=== PATIENT | female | born 1995 | race Caucasian/White ===

== ENCOUNTER 2020-10-01 21:05 | Emergency (ER) | payer BC ==
[~2020-10-01] VITALS: Ht 167.6 cm; Wt 61.4 kg
[2020-10-01 22:30] VITALS: BP 124/88
--- NOTE | 2020-10-01 23:54 | RAD ---
STUDY: CT head and cervical spine without contrast INDICATION: Blunt trauma. COMPARISON: None. TECHNIQUE: Axial CT imaging through the head and cervical spine without the use of intravenous contra st. Sagittal and coronal reformats were obtained. One or more of the following individualized dose reduction techniques were utilized for this examinat ion: 1. Automated exposure control 2. Adjustment of the mA and/or kV according to patient size 3. Use of iterative reconstruction technique. FINDINGS: CT head: No acute intracranial hemorrhage. No mass effect, midline shift or hydrocephalus. Leger-white matter d ifferentiation is maintained. Unremarkable calvarium. No layering fluid seen within the visualized paranasal sinuses. Unremarkable mastoid air cells and middle ears. CT cervical spine: No acute fracture or traumatic malalignment. No osseous central canal or neural foraminal stenosis. Unremarkable paraspinous soft tissues, thyroid and lung apices. IMPRESSION: CT head: 1. Unremarkable head CT. CT cervical spine: 1. No acute fracture or traumatic malalignment. Electronically signed by: KARINA CHACON MD (10/01/2020 11:51 PM) [facility]
[2020-10-02] MEDS ORDERED: ONDA4TAB12 PO (00:37)
--- NOTE | 2020-10-02 00:37 | PHYS DOC ---
General Adult EDM: Chief Complaint: MECHANICAL FALL HPI: HPI: Patient is a 25 year old 25-year-old female reports that approximately an hour and half prior to arrival to the ER today she was running into her garage when she hit her head on the garage door falling backward and striking her head on the concrete floor. Patient denies any loss of consciousness. Patient states she has mild head pain. Patient states that her neck feels a little stiff. Patient is worried that she might have a concussion so she came to the emergency department today. Patient states that she is currently on her menstrual cycle which started 2 days ago. Patient denies any allergies to medications, states she takes methylphenidate, Abilify, Lamictal, and gabapentin for panic disorders. Patient denies any visual disturbances, denies any other Zickel complaints or physical concerns. Review of Systems: Review of Systems: 14 body systems of review of systems have been reviewed. See HPI for pertinent positives and negative responses, otherwise all other systems are negative, nonpertinent or noncontributory. Heart Score: C/O Chest Pain: No Risk Factors: Risk Factors: DM, Current or recent (<one month) smoker, HTN, HLP, family history of CAD, obesity. Risk Scores: Score 0 - 3: 2.5% MACE over next 6 weeks - Discharge Home Score 4 - 6: 20.3% MACE over next 6 weeks - Admit for Clinical Observation Score 7 - 10: 72.7% MACE over next 6 weeks - Early Invasive Strategies Physical Exam: PE: Constitutional: Well developed, well nourished, no acute distress, non-toxic appearance. 25-year-old female no apparent distress. HENT: Normocephalic, atraumatic, bilateral external ears normal, oropharynx moist, no oral exudates, nose normal. No skull depressions appreciated, no areas of ecchymosis appreciated of the skull, no swelling or crepitus appreciated of the skull or scalp. Eyes: PERRLA, EOMI, conjunctiva normal, no discharge. Neck: Normal range of motion, no tenderness, supple, no stridor. No midline spinal tenderness, no meningismus signs, no nuchal rigidity appreciated. Cardiovascular:Heart rate regular rhythm, no murmur, heart sounds S1-S2 to auscultation. Lungs & Thorax: Bilateral breath sounds clear to auscultation all lung benito, no adventitious lung sounds appreciated. Abdomen: Bowel sounds normal, soft, no tenderness, no masses, no pulsatile masses. Skin: Warm, dry, no erythema, no rash. Back: No tenderness, no CVA tenderness. Extremities: No tenderness, no cyanosis, no clubbing, ROM intact, no edema. Neurologic: Alert and oriented X 3, normal motor function, normal sensory fu nction, no focal deficits noted. Psychologic: Affect normal, judgement normal, mood normal. EKG: EKG: [] Radiology/Procedures: Radiology/Procedures: PATIENT: FERNANDA RILEY ACCOUNT: [id number] : 1995 LOCATION: ER AGE: 25 SEX: F EXAM STATUS: REG ER ORD. PHYSICIAN: TY HOGAN APRN REASON: BLUNT TRAUMA PROCEDURE: CT HEAD AND CERVICAL SPINE WO STUDY: CT head and cervical spine without contrast INDICATION: Blunt trauma. COMPARISON: None. TECHNIQUE: Axial CT imaging through the head and cervical spine without the use of intravenous contrast. Sagittal and coronal reformats were obtained. One or more of the following individualized dose reduction techniques were utilized for this examination: 1. Automated exposure control 2. Adjustment of the mA and/or kV according to patient size 3. Use of iterative reconstruction technique. FINDINGS: CT head: No acute intracranial hemorrhage. No mass effect, midline shift or hydrocephalus. Leger-white matter differentiation is maintained. Unremarkable calvarium. No layering fluid seen within the visualized paranasal sinuses. Unremarkable mastoid air cells and middle ears. CT cervical spine: No acute fracture or traumatic malalignment. No osseous central canal or neural foraminal stenosis. Unremarkable paraspinous soft tissues, thyroid and lung apices. IMPRESSION: CT head: 1. Unremarkable head CT. CT cervical spine: 1. No acute fracture or traumatic malalignment. Electronically signed by: KARINA CHACON MD (10/01/2020 11:51 PM) [facility] DICTATED and SIGNED BY: KARINA CHACON MD DATE: 10/01/20 [id number] 0 Course & Med Decision Making: Course & Med Decision Making Pertinent Labs and Imaging studies reviewed. (See chart for details) 25-year-old female, vital signs reviewed, presents emergency department concerning hitting her head on the garage door and falling onto the ground where she hit the back of her head once again just prior to arrival. Physical examination was unremarkable, related to patient's chief complaint a CT head and C-spine was ordered. CT head and C-spine read negative for acute findings per radiologist interpretation. Discussed findings with patient, discussed concussion type signs and symptoms with patient, discussed strict return to emergency department precautions and concerns, discussed with patient follow-up with primary care. Patient states she has had a few waves of nausea however she is not nauseated at this time and is requesting Zofran prescription for home. Patient gave verbal understanding of discharge home instructions, follow-up with primary care this week for reevaluation of closed head injury, strict return to emergency department precautions and concerns, prescription for Zofran at home, patient was discharged home without incident. Dragon Disclaimer: Dragon Disclaimer: This electronic medical record was generated, in whole or in part, using a voice recognition dictation system. Departure Departure Impression: Primary Impression: CHI (closed head injury) Qualified Codes: S09.90XA - Unspecified injury of head, initial encounter Additional Impression: Nausea Disposition: HOME / SELF CARE / HOMELESS Condition: GOOD Referrals: NO PCP (PCP) VICTORINO HOPKINS MD Patient Instructions: Concussion and Brain Injury Additional Instructions: You are seen in the emergency department today for a head injury. A CT was performed of your head and C-spine, there were no concerning findings that would require immediate attention and consultation with a neurologist, neurosurgeon, or hospitalization today. We have discussed concussive type injuries. I am p rescribing you a prescription for Zofran for nausea. Please follow-up with your primary care doctor this week for reevaluation of your closed head injury. Please return to the emergency department for worsening symptoms or other concerns. EMERGENCY DEPARTMENT GENERAL DISCHARGE INSTRUCTIONS Thank you for coming to [facility] Emergency Department (ED) today and trusting us with you care. We trust that you had a positive experience in our Emergency Department. If you wish to speak to the department management, you may call the Director at [phone]. YOUR FOLLOW UP INSTRUCTIONS ARE FOLLOWS: 1. Do you have a private Doctor? If you do not have a private doctor, please ask for a resource list of physicians or clinics that may be able to assist you with follow up care. 2. The Emergency Physicain has interpreted your x-rays. The X-Ray specialist will also review them. If there is a change in the findings, you will be notified in 48 hours when at all possible. 3. A lab test or culture has been done, your results will be reviewed and you will be notified if you need a change in treatment. ADDITIONAL INSTRUCTIONS AND INFORMATION: 1. Your care today has been supervised by a physician who is specially trained in emergency care. Many problems require more than one evaluation for a complete diagnosis and treatment. We recommend that you schedule your follow up appointment as recommended to ensure complete treatment of you illness or injury. If you are unable to obtain follow up care and continue to have a problem, or if your condition worsens, we recommend that you return to the ED. 2. We are not able to safely determine your condition over the phone nor are we able to give sound medical advice over the phone. For these safety reasons, if you call for medical advice we will ask you to come to the ED for further evaluation. 3. If you have any questions regarding these discharge instructions please call the ED at [phone]. SAFETY INFORMATION: In the interest of safety, wellness, and injury prevention; we encourage you to wear your sealbelt, if you smoke; quite smoking, and we encourage family to use a protective helmet for bicycling and other sporting events that present an increased risk for head injury. IF YOUR SYMPTOMS WORSEN OR NEW SYMPTOMS DEVELOP, OR YOU HAVE CONCERNS ABOUT YOUR CONDITION; OR IF YOUR CONDITION WORSENS WHILE YOU ARE WAITING FOR YOUR FOLLOW UP APPOINTMENT; EITHER CONTACT YOUR PRIMARY CARE DOCTOR, THE PHYSICIAN WHOSE NAME AND NUMBER YOU WERE GIVEN, OR RETURN TO THE ED IMMEDIATELY. Scripts Ondansetron (ONDANSETRON ODT) 4 Mg Tab.rapdis 1 TAB PO PRN Q6-8HRS for NAUSEA, #16 TAB 0 Refills Prov: TY HOGAN APRN 10/02/20 TY HOGAN APRN October 02, 2020 00:37
== END 2020-10-02 00:55 | disposition home or self-care (01) ==
LOC: ER 21:05
DX: S09.90XA Unspecified injury of head, initial encounter (principal); M43.6 Torticollis; R51.9 Headache, unspecified; W18.39XA Other fall on same level, initial encounter; Y93.89 Activity, other specified; Y92.89 Other specified places as the place of occurrence of the external cause; Y99.8 Other external cause status
CPT/HCPCS: 70450; 72125; 99285-25